=== PATIENT | male | born 1930 | race Caucasian/White ===

== ENCOUNTER → 2016-10-14 | Outpatient (CLI) | payer OTHER, BC ==
[~2016-10-14] MED LIST: ACETAMINOPHEN1 EAC4 PO; ALLOPURINOL300 MG PO; AZOR 10/40 M1 TABLET PO; AZOR 5/20 MG1 TABLET PO; AZOR 5/40 MG1 TABLET PO; CIPRO500 MG PO; DOCUSATE SODIU100 MG PO; FLAGYL500 MG PO; FLONASE16 G1 BOTH NARES; HYDROCHLOROTH12.5 M3 PO; OCUVITE TABLET1 EACH PO; OMEPRAZOLE20 MG PO; PANTOPRAZOLE SO40 MG PO; PREDNISONE20 MG PO; PREDNISONE50 MG PO; TYLENOL PM EX-1 EACH PO; VENTOLIN HFA18 GM IH
== END | disposition home or self-care (01) ==
LOC: NUC 08:22
DX: C61 Malignant neoplasm of prostate (principal); M50.30 Other cervical disc degeneration, unspecified cervical region; M51.35 Other intervertebral disc degeneration, thoracolumbar region; M17.0 Bilateral primary osteoarthritis of knee; M19.079 Primary osteoarthritis, unspecified ankle and foot
CPT/HCPCS: 78306; A9503

== ENCOUNTER → 2016-10-17 | Outpatient (CLI) | payer OTHER, BC | END | disposition home or self-care (01) | LOC: RAD 07:54 | DX: M51.35 Other intervertebral disc degeneration, thoracolumbar region (principal); C61 Malignant neoplasm of prostate | CPT/HCPCS: 74177; 74178 ==

== ENCOUNTER 2017-07-22 08:57 | Emergency (ER) | payer OTHER, BC ==
[~2017-07-22] VITALS: Ht 157.5 cm; Wt 86.3 kg
[2017-07-22] MEDS ORDERED: BACTRIM,SEPT1 TABLET PO (11:14)
[2017-07-22] MEDS ORDERED: PERCOCET 5/31 TABLET PO (11:15)
[2017-07-22] MEDS ORDERED: NEOMYCIN-POLYMY10 ML BOTH EARS (11:15)
[2017-07-22] MEDS ORDERED: COLACE100 MG PO (11:39)
[2017-07-22] MEDS ORDERED: NORCO 5/3251 TABLET PO (11:39)
[2017-07-22 12:38] VITALS: BP 156/78
== END 2017-07-22 12:40 | disposition home or self-care (01) ==
LOC: EME 08:57
DX: M54.16 Radiculopathy, lumbar region (principal); I10 Essential (primary) hypertension
CPT/HCPCS: 72100; 99281; 99284; J8540